=== PATIENT | female | born 1940 | race Caucasian/White ===

== ENCOUNTER → 2016-05-25 | Outpatient (CLI) | payer MEDICARE, BC ==
[~2016-05-25] MED LIST: LIDOCAINE 1% 30ml (STERI-PAK) ONE; LIDOCAINE 2%/EPI 1:100,000 20ml MDV ONE; NORMAL SALINE 250 ML IV ONE
== END ==
LOC: WC.BC 12:35
PROVIDERS: ATTEND Family Medicine
DX: N61.0 Mastitis without abscess (principal); N64.1 Fat necrosis of breast; R92.0 Mammographic microcalcification found on diagnostic imaging of breast; R92.1 Mammographic calcification found on diagnostic imaging of breast
CPT/HCPCS: 19081; A4648; G0206; J7050; 88305; 88342

== ENCOUNTER 2017-02-27 10:57 | Inpatient (IN) ==
[2017-02-27] MEDS ORDERED: SALINE FLUSH 10ml SYRINGE IVF PRN (11:16)
[2017-02-27] MEDS ORDERED: ALBUTEROL/IPRATROPIUM 2.5mg-0.5mg/3ml NEB AEROSOL ONE (11:16)
--- NOTE | 2017-02-27 11:17 | Emergency Department Report ---
General Adult HPI - General Chief complaint: Upper Respiratory Infection Stated complaint: cough, sob Time Seen by Provider: 02/27/17 11:09 Source: patient, EMS Mode of arrival: EMS Limitations: no limitations - History of Present Illness HPI narrative: 77-year-old female presents to the emergency department with a chief complaint of cough and shortness of breath. Patient has been experiencing her symptoms for the past 7 days. She has been on Keflex from her primary care physician. She states that she is not improving. She presented to the [facility] earlier today for further evaluation and treatment and was found to be hypoxic at 89% on room air and referred to the emergency department for further evaluation and treatment. She denies any pain or discomfort. Patient notes no other current complaints or associated symptoms. She states she did have a fever that has since resolved. She was at home when her symptoms began. Patient states that her symptoms began after being exposed to multiple ill contacts with similar symptoms in the [employer]. - Related Data Home Medications Medication Instructions Recorded Confirmed Acetaminophen [Acetaminophen Extra 500 mg PO Q4H PRN 02/27/17 02/27/17 Strength] Aspirin [Aspirin EC] 81 mg PO DAILY 02/27/17 02/27/17 Clopidogrel Bisulfate [Clopidogrel] 75 mg PO DAILY 02/27/17 02/27/17 LORazepam [Lorazepam] 1 mg PO BID 02/27/17 02/27/17 Lisinopril [Prinivil] 20 mg PO DAILY 02/27/17 02/27/17 Metoprolol Succinate 50 mg PO DAILY 02/27/17 02/27/17 Simvastatin [Simvastatin] 20 mg PO HS 02/27/17 02/27/17 cephALEXin [Cephalexin] 500 mg PO TID 02/27/17 02/27/17 dilTIAZem HCl [Cartia Xt] 240 mg PO PM 02/27/17 02/27/17 Allergies Allergy/AdvReac Type Severity Reaction Status Date / Time cephalexin Allergy Mild Nightmare Verified 02/27/17 11:15 Review of Systems Constitutional: Reports: fever (resolved. ). Denies: chills Eyes: Denies: eye pain, vision change ENT: Denies: ear pain, throat pain Cardiovascular: Denies: chest pain, palpitations Respiratory: Reports: cough, dyspnea, wheezes Gastrointestinal: Denies: abdominal pain, nausea, vomiting, diarrhea Genitourinary: Denies: urgency, dysuria Musculoskeletal: Denies: back pain, arthralgia Integumentary: Denies: erythema, rash Neurological: Denies: headache, numbness, paresthesias Psychiatric: Denies: anxiety, depression Endocrine: Denies: fatigue, heat or cold intolerance Hematological/Lymphatic: Denies: easy bleeding, easy bruising Allergic/Immunologic: Denies: facial swelling, urticaria PFSH Patient Stated Medical History Cataracts Yes Hypertension Yes Bronchitis Yes Gastroesophageal Reflux Yes Disease Anemia Yes Osteoarthritis Yes Clinic Medical History (Last Updated 02/27/17 @ 10:01 by TESS Flores) Arthritis (Chronic Medical) GERD (gastroesophageal reflux disease) (Chronic Medical) Pre-diabetes (Chronic Medical) Bronchitis (Resolved Medical) Hypercholesterolemia (Chronic Medical) Diverticulitis (Resolved Medical) Colon cancer (Resolved Medical) Hypertension (Chronic Medical) Surgical History: *Laparoscopic Abdominal Colon Resection due to cancer 2016. *Left Total Knee Replacement 10/2015. *Left Breast Biopsy (benign). * Cardiac Cathetarization x2 with Stent Placement once in the Coronary Artery. * Bilateral Cataract Removal. *[place] Teeth Extraction. *Colonoscopy Family History: Family History (Last Reviewed 02/27/17 @ 10:05 by TESS Flores) Mother Breast cancer Hypertension Dementia Father Hypertension Brother Hypertension Type 2 diabetes mellitus - Social History Smoking status: Former smoker Substance use type: does not use Alcohol intake frequency: does not drink Physical Exam - Limitations Limitations: no limitations - General General appearance: alert, in no apparent distress - Normal Exams: Head:: Normocephalic without trauma Eyes:: Pupils are PERRLA w/ EOMI, No scleral icterus, irritation, or foreign bodies noted ENMT:: No facial trauma, nasal exudates, pharyngeal erythema, or exudates are noted Dental: No fractured, loose, or missing teeth noted Neck:: Full range of motion, without adenopathy, JVD, bruits or thyromegaly Chest/Respirations:: with good airflow, and symmetry bilaterally (rhonchi bilaterally.) Cardiovascular:: Regular rate and rhythm, without murmur or gallop, Pulses 2+ all extremities, capillary refill, <2 seconds all extremities Abdomen:: Bowel sounds positive, soft, non-tender, non-distended, no hepatosplenomegaly, masses or bruits noted Lymphatic:: No lymphadenopathy, or lymphedema noted Musculoskeletal:: No tenderness, or deformity noted, good range of motion, all extremities Integumentary:: No rashes, hives, or bruising noted, hair and nails, without abnormality Neurological:: Patient is alert, and oriented, cranial nerves, motor/sensory/ cerebellar, exams w/o gross deficits, to observation Psychiatric:: Patient exhibits, appropriate attention, emotion and affect Course Vital Signs Temperature 97.8 F 02/27/17 10:58 Pulse Rate 48 L 02/27/17 10:58 Respiratory Rate 20 02/27/17 10:58 Blood Pressure 168/72 H 02/27/17 10:58 Temperature 96.3 F L 02/27/17 14:08 Pulse Rate 47 L 02/27/17 14:08 Respiratory Rate 18 02/27/17 14:08 Blood Pressure 150/68 H 02/27/17 14:00 Pulse Oximetry 94 02/27/17 14:08 Medical Decision Making - MDM Narrative Medical decision making narrative: Labs/imaging were discussed in detail with the patient and family and questions are answered. Patient is given DuoNeb treatments upon arrival to the emergency department. Patient is requiring supplemental oxygen to maintain her baseline oxygen saturation. Patient was given 3 trial weans in order to get off of the oxygen and was unsuccessful. She is requiring 2 L nasal cannula in order to maintain oxygen saturation greater than 90%. Patient does have a potential right lower lobe infiltrate noted on chest x-ray but this is most likely viral as the patient is influenza A positive. Patient is discussed with Dr. Gandhi who is in agreement with the current plan of management. Patient is admitted in observation status for influenza and hypoxia for further evaluation and treatment. No further orders from accepting physician who is in agreement with the current plan of management. Patient is admitted to the hospital in improved condition. No current indication for antibiotic therapy at this time as potential infiltrate is most likely viral with the patient being positive for influenza A. - Differential Diagnosis Viral syndrome, Pneumonia, URI, Influenza - Lab Data Result diagrams: 02/27/17 11:30 02/27/17 11:30 Lab Results 02/27/17 02/27/17 02/27/17 Range/Units 11:30 11:30 11:32 WBC 3.4 L (4.5-11.0) T/MM3 RBC 4.51 (4.00-5.20) M/MM3 Hgb 12.4 (12-16) GM/DL Hct 39.8 (36-46) % MCV 88.2 (80-100) UM3 MCH 27.5 (26-34) UUG MCHC 31.2 (31-37) GM/DL RDW Std Deviation 45.1 (36.9-50.2) FL Plt Count 151 (130-400) T/MM3 MPV 12.1 (9.4-12.4) UM3 Immature Gran % (Auto) 0.0 (0.0-0.5) % Neut % (Auto) 40.2 (33-66) % Lymph % (Auto) 43.8 (23-45) % Bradford % (Auto) 12.7 H (0-9.0) % Eos % (Auto) 1.2 (0-4) % Baso % (Auto) 2.1 H (0-2) % Neut # (Auto) 1.4 L (1.8-7.7) T/MM3 Lymph # (Auto) 1.5 (1-4.8) T/MM3 Bradford # (Auto) 0.4 (0-0.8) T/MM3 Eos # (Auto) 0.0 (0-0.5) T/MM3 Baso # (Auto) 0.1 (0-0.2) T/MM3 Abs Immat Gran (auto) 0.00 (0.00-0.03) T/MM3 Turbidity < 20 (0-20) Sodium 142 (134-144) MEQ/L Potassium 4.5 (3.6-5) MEQ/L Chloride 104 (98-107) MEQ/L Carbon Dioxide 26 (22-30) MEQ/L Anion Gap 12 (5-15) MEQ/L BUN 16.0 (7-17) MG/DL Creatinine 0.7 (0.7-1.2) MG/DL GFR Calculation 81 BUN/Creatinine Ratio 23 (6-26) RATIO Glucose 96 (65-110) MG/DL Calculated Osmolality 274 (261-280) MOSM/KG Calcium 10.0 (8.4-10.2) MG/DL Total Bilirubin 0.50 (0.20-1.30) MG/DL Icterus Index < 2 (0-7) AST 37 H (14-36) U/L ALT 46 (9-52) U/L Alkaline Phosphatase 100 (38-126) U/L Troponin I 0.039 (0-0.12) ng/ml Total Protein 7.8 (6.3-8.2) G/DL Albumin 4.5 (3.5-5.0) G/DL Globulin 3.3 (2.4-3.6) G/DL Albumin/Globulin Ratio 1.4 (1.1-2.2) RATIO Specimen Hemolysis 27 H (0-25) Influenza Type A (PCR) Positive A (Negative) Influenza Type B (PCR) Negative (Negative) - Radiology Data Chest x-ray: Potential right lower lobe infiltrate most likely viral. No other acute processes. - EKG Data EKG #1 EKG results narrative: Sinus bradycardia. 48 bpm. No STEMI. Disposition Clinical Impression: influenza, Hypoxia Disposition: 02 To [facility] [place] Acute Care Condition: Stable Time of Disposition: 13:15 (Admit. Dr. Gandhi. ) - Seen By: physician
[2017-02-27 14:30] VITALS: BMI 31.1
--- NOTE | 2017-02-27 15:08 | History & Physical Report ---
History of Present Illness Date: 02/27/17 Chief complaint: Dyspnea, Influenza, Hypoxia HPI: Aurelia is a pleasant 77-year-old female who has had upper respiratory congestion , cough and fever for over one week. She reports that earlier in the week 02/24 - 02/26 she had a fever was up to 103. She has had episodes at which she has felt short of breath. Did contact her primary care provider, Dr. Domitila Silva who started her on oral Keflex over the phone on 02/23. Today she presented to the emergency room for acute evaluation. She was found to be hypoxic with room air saturations of 88% and required 2 liters of oxygen by nasal cannula to maintain adequate saturations. Further laboratory studies were performed. CBC was found to be normal, chemistry panel normal. Patient was found to be positive for influenza A. She has been bradycardic 45-50 since arrival and does take a beta-deepali chronically. Given continued hypoxia, tachypnea, as well as findings of influenza A. The hospitalist services were contacted and accepted patient for inpatient admission for further evaluation and treatment. 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 *Left Total Knee Replacement 10/2015. *Left Breast Biopsy (benign). *Cardiac Cathetarization x2 with Stent Placement once in the Coronary Artery- 09/2016. * Bilateral Cataract Removal. *[place] Teeth Extraction. *Colonoscopy Family History Updates: Mother- Breast cancer,Hypertension,Dementia. Father- Hypertension. Brother-Hypertension,Type 2 diabetes mellitus - Social History Smoking status: Former smoker (quit in the ) Substance use type: does not use Housing: house Household members: other (Brother) Current residence: Apartment/Private Home Social history: Patient is independent resides at home and is the sole caregiver for her brother. PCP Dr Domitila Silva and Dr Feliz Ordoñez Medications Home Medications Medication Instructions Recorded Confirmed Type Acetaminophen [Acetaminophen Extra 500 mg PO Q4H PRN 02/27/17 02/27/17 History Strength] Aspirin [Aspirin EC] 81 mg PO DAILY 02/27/17 02/27/17 History Clopidogrel Bisulfate [Clopidogrel] 75 mg PO DAILY 02/27/17 02/27/17 History LORazepam [Lorazepam] 1 mg PO BID 02/27/17 02/27/17 History Lisinopril [Prinivil] 20 mg PO DAILY 02/27/17 02/27/17 History Metoprolol Succinate 50 mg PO DAILY 02/27/17 02/27/17 History Simvastatin [Simvastatin] 20 mg PO HS 02/27/17 02/27/17 History cephALEXin [Cephalexin] 500 mg PO TID 02/27/17 02/27/17 History dilTIAZem HCl [Cartia Xt] 240 mg PO PM 02/27/17 02/27/17 History Allergies Allergy/AdvReac Type Severity Reaction Status Date / Time cephalexin Allergy Mild Nightmare Verified 02/27/17 11:15 Exam Vital Signs: Temperature 96.3 F L 02/27/17 14:08 Pulse Rate 47 L 02/27/17 14:08 Respiratory Rate 18 02/27/17 14:08 Blood Pressure 150/68 H 02/27/17 14:00 Pulse Oximetry 94 02/27/17 14:08 Telemetry Rhythm: Sinus Bradycardia Height/Weight/BMI: Height 1.55 m Weight 74.8 kg Body Mass Index 31.1 - Constitutional Present: well nourished, well developed - Routine HEENT Exam Eye: Present: EOMI ENT: Present: mucous membranes moist, dentition normal - Routine Respiratory Exam Present: wheezes - Routine Cardiovascular Exam Present: RRR, S1, S2. Absent: murmur - Routine Abdominal Exam Present: soft, normoactive bowel sounds, non distended. Absent: tenderness - Routine Extremities Exam Present: pulses intact, normal capillary refill - Routine Skin Exam Present: intact, dry, warm - Routine Neurological Exam Present: alert, oriented X3, CN II-XII intact, moving all extremities - Routine Psychiatric Exam Present: normal affect, cooperative Results - Labs CBC & Chem 7: 02/27/17 11:30 02/27/17 11:30 Assessment and Plan (1) Influenza A Current visit: Yes Status: Acute (2) Hypoxia Current visit: Yes Status: Acute Assessment and Plan: Impression Influenza A- POA Hypoxia- RA sats 88% Bradycardia- 45-50 Coronary artery disease Hypertension Hypercholesterolemia. Hx adenocarcinoma Plan Admit patient inpatient status under the care of Dr Gandhi for Influenza A with hypoxia. Continue with oxygen therapy to keep saturations greater than 92%. Will order scheduled DuoNeb breathing treatments 4 times a day and as needed. Monitor cardiac telemetry, given bradycardia. Patient does take daily, Metoprolol ER 50mg daily and Cardizem. Will place both on hold. Continue with lisinopril, aspirin and Plavix. Ativan BID for chronic anxiety She may have regular diet NS at 100ml/hr for gentle hydration as she has had decreased oral intake for 12 week SCDs to bilateral lower extremity for DVT prophylaxis. He does wish to be a full code and this orders written. Discuss further orders and plan of care attending, Dr Gandhi At time of discharge medical care will return to primary care provider, Dr. Silva - Physician Narrative Narrative: S: Pt overall feels like she's doing okay, wants to go home. Denies any cp, sob , n/v/d, f/c currently. Denies any lightheadedness, dizziness. Denies any previous known hx of bradycardia. O: Cards: Bradycardia, no murmurs Lungs: CTAB, no wheezes A/P: Pt is recovering from flu well. Will provide supportive therapy. Pt also has asymptomatic bradycardia, unclear if early sinus disease or from meds. Holding metoprolol/cardizem. Pt has had cath just 6 months ago by . EKG shows sinus rob without any blocks. Possibly from hypoxia from acute illness. Will monitor on tele. Date: 02/27/17 Time: 1900 Hospital Course Summary Disclaimer: The visit summary below is not to be considered part of the above Progress Note. Hospital Course: 02/27/17 Impression Influenza A- POA Hypoxia- RA sats 88% Bradycardia- 45-50 Coronary artery disease Hypertension Hypercholesterolemia. Hx adenocarcinoma Plan Admit patient inpatient status under the care of Dr Gandhi for Influenza A with hypoxia. Continue with oxygen therapy to keep saturations greater than 92%. Will order scheduled DuoNeb breathing treatments 4 times a day and as needed. Monitor cardiac telemetry, given bradycardia. Patient does take daily, Metoprolol ER 50mg daily and Cardizem. Will place both on hold. Continue with lisinopril, aspirin and Plavix. Ativan BID for chronic anxiety She may have regular diet NS at 100ml/hr for gentle hydration as she has had decreased oral intake for 12 week SCDs to bilateral lower extremity for DVT prophylaxis. He does wish to be a full code and this orders written. Discuss further orders and plan of care attending, Dr Gandhi At time of discharge medical care will return to primary care provider, Dr. Silva
[2017-02-27] MEDS ORDERED: ONDANSETRON 4 MG/2 ML INJECTION IVP PRN (15:20)
[2017-02-27] MEDS ORDERED: ACETAMINOPHEN 500 MG TABLET PO PRN (15:23)
[2017-02-27] MEDS ORDERED: ALBUTEROL 2.5mg/3ml (0.083%) NEB AEROSOL PRN (15:26)
[2017-02-27] MEDS: NS 1,000 ML IV SCH (15:28)
[2017-02-27] MEDS: ACETAMINOPHEN 500 MG TABLET PO SCH ×2 (15:38→21:34)
[2017-02-27] MEDS: ALBUTEROL/IPRATROPIUM 2.5mg-0.5mg/3ml NEB AEROSOL SCH ×2 (15:56→19:45)
[2017-02-27] MEDS ORDERED: ATROPINE 0.4 MG/ML INJECTION IVP PRN (19:14)
[2017-02-27] MEDS ORDERED: SIMVASTATIN 20 MG TABLET PO SCH (21:00)
[2017-02-27] MEDS: LORazepam 1 MG TABLET PO SCH (21:34)
[2017-02-28] MEDS: ACETAMINOPHEN 500 MG TABLET PO SCH ×4 (00:23→11:43)
[2017-02-28] MEDS: NS 1,000 ML IV SCH ×2 (01:02→11:44)
[2017-02-28 07:49] VITALS: TEMP 97.2
[2017-02-28 08:20] VITALS: BP 168/80
[2017-02-28] MEDS: ALBUTEROL/IPRATROPIUM 2.5mg-0.5mg/3ml NEB AEROSOL SCH ×2 (08:30→12:15)
--- NOTE | 2017-02-28 08:57 | XRay Report ---
Indication: Productive Cough, congestion and shortness of air for one to two weeks PROCEDURE: XR chest 1V: Encounter: Initial Comparison: None FINDINGS: The lungs are clear. There is no abnormal airspace opacity, pleural effusion or pneumothorax identified. The heart size is at the upper limits of normal to minimally enlarged. The pulmonary vasculature and mediastinum are within normal limits. No significant skeletal abnormality is seen. IMPRESSION: No acute cardiopulmonary abnormality. .
[2017-02-28] MEDS ORDERED: LISINOPRIL 20 MG TABLET PO SCH (09:00)
[2017-02-28] MEDS ORDERED: ASPIRIN *EC* 81 MG TABLET PO SCH (09:00)
[2017-02-28] MEDS ORDERED: CLOPIDOGREL 75 MG TABLET PO SCH (09:00)
[2017-02-28 09:01] VITALS: PULSE 70
[2017-02-28] MEDS: LORazepam 1 MG TABLET PO SCH (09:28)
[2017-02-28 12:26] VITALS: RESP 20; O2SAT 95
--- NOTE | 2017-02-28 15:46 | Discharge Summary ---
Discharge Information Date of admission: 02/27/17 13:54 Anticipated date of discharge: 02/28/17 Attending Physician: Carlos Gandhi MD Primary care physician: Tommy Ordoñez MD Consults: None - Discharge Diagnosis (1) Influenza A Status: Acute (2) Hypoxia Status: Acute Influenza A- POA Hypoxia- RA sats 88% Bradycardia- 45-50 A-fibulation- New onset Coronary artery disease Hypertension Hypercholesterolemia. Hx adenocarcinoma - Procedures Procedures: None - Laboratory Labs: 02/28/17 04:36 02/28/17 04:36 - Microbiology None - Radiology Radiology: Chest xray- no acute cardiopulmonary abnormalities. - Pathology None History of Present Illness HPI: Aurelia is a pleasant 77-year-old female who has had upper respiratory congestion , cough and fever for over one week. She reports that earlier in the week 02/24 - 02/26 she had a fever was up to 103. She has had episodes at which she has felt short of breath. Did contact her primary care provider, Dr. Domitila Bryant who started her on oral Keflex over the phone on 02/23. Today she presented to the emergency room for acute evaluation. She was found to be hypoxic with room air saturations of 88% and required 2 liters of oxygen by nasal cannula to maintain adequate saturations. Further laboratory studies were performed. CBC was found to be normal, chemistry panel normal. Patient was found to be positive for influenza A. She has been bradycardic 45-50 since arrival and does take a beta-deepali chronically. Given continued hypoxia, tachypnea, as well as findings of influenza A. The hospitalist services were contacted and accepted patient for inpatient admission for further evaluation and treatment. Objective Vital signs: Temperature 97.2 F 02/28/17 07:00 Pulse Rate 70 02/28/17 08:45 Respiratory Rate 20 02/28/17 12:15 Blood Pressure 168/80 H 02/28/17 08:20 Pulse Oximetry 95 02/28/17 12:15 Height/Weight/BMI: Height 1.55 m Weight 75.8 kg Body Mass Index 31.1 - Constitutional Present: no acute distress, well nourished, well developed - Routine HEENT Exam Eye: Present: EOMI ENT: Present: mucous membranes moist, dentition normal - Routine Respiratory Exam Present: CTA bilaterally. Absent: wheezes - Routine Cardiovascular Exam Present: RRR, S1, S2. Absent: murmur - Routine Abdominal Exam Present: soft, normoactive bowel sounds, non distended. Absent: tenderness - Routine Extremities Exam Present: full ROM, normal capillary refill - Routine Back/Spine/Pelvis Exam Back/Spine: Present: full ROM - Routine Skin Exam Present: intact, dry, warm - Routine Neurological Exam Present: alert, oriented X3, CN II-XII intact - Routine Lymphatic Exam Lymphatic: Absent: adenopathy - Routine Psychiatric Exam Present: normal affect, cooperative Hospital Course This is a general summary of the patient's hospital course. For more details refer to the complete medical record. Hospital course: 02/27/17 - Impression Influenza A- POA Hypoxia- RA sats 88% Bradycardia- 45-50 Coronary artery disease Hypertension Hypercholesterolemia. Hx adenocarcinoma Plan Admit patient inpatient status under the care of Dr Gandhi for Influenza A with hypoxia. Continue with oxygen therapy to keep saturations greater than 92%. Will order scheduled DuoNeb breathing treatments 4 times a day and as needed. Monitor cardiac telemetry, given bradycardia. Patient does take daily, Metoprolol ER 50mg daily and Cardizem. Will place both on hold. Continue with lisinopril, aspirin and Plavix. Ativan BID for chronic anxiety She may have regular diet NS at 100ml/hr for gentle hydration as she has had decreased oral intake for 12 week SCDs to bilateral lower extremity for DVT prophylaxis. He does wish to be a full code and this orders written. Discuss further orders and plan of care attending, Dr Gandhi At time of discharge medical care will return to primary care provider, Dr. Bryant 02/28/17- Discharge Aurelia is seen and examined on day of discharge. Her breathing has continued to improve and she has not required any further oxygen supplementation. She does continue to have a mild cough, however denies feeling short of breath. Bradycardia has improved and EKG was repeated today that does revel atrial fibrillation , which is a new onset for patient. We did speak with patient's cardiology, Dr. Brooklyn Valladares . He recommends starting on eloquence 5 milligrams daily for anticoagulation. We will also continue on Plavix, however, will stop aspirin. Patient is also to stop Cardizem, Metoprolol and continue only on Lisinopril. Patient and daughter are instructed to call Dr. Valladares's office on Friday 03/02 to set up follow-up appointment in the next 1 week. We discussed in great detail regarding monitoring for evidence of bleeding. Patient and daughter verbalize understanding of instructions. She is discharged in stable condition. Time spent with patient: discharge greater than 30 minutes Discharge Plan - Discharge Disposition Discharge Date: 02/28/17 Disposition: 01 Discharged Home, Self-Care *Condition: Stable Reason For Visit (Visit label in EMR): influenza, hypoxia - Discharge Medications *Discharge Medications: New Apixaban [Eliquis] 5 mg PO BID #30 tab Acetaminophen [Tylenol] 500 mg PO Q4H tab Continue Simvastatin 20 mg PO HS LORazepam [Lorazepam] 1 mg PO BID Acetaminophen [Acetaminophen Extra Strength] 500 mg PO Q4H PRN PRN Reason: Pain Lisinopril [Prinivil] 20 mg PO DAILY Clopidogrel Bisulfate [Clopidogrel] 75 mg PO DAILY Discontinued dilTIAZem HCl [Cartia Xt] 240 mg PO PM cephALEXin [Cephalexin] 500 mg PO TID Aspirin [Aspirin EC] 81 mg PO DAILY Metoprolol Succinate 50 mg PO DAILY - Discharge Packet/Instructions *Diet: Regular diet *Activity: Activity as tolerated *Pain Management/Treatment: Tylenol as needed for pain *Wound Care: None Additional Instructions: Stop taking- Keflex, ASA, Cartia, Metoprolol. Start taking Eliquid 5 mg twice a day. Montior for evidence of bleeding, blood in her stools or black stools. Call Dr Valladares on Friday 03/02 to schedule follow-up appointment as soon as available. Report to his office for any sustained heart rate greater than 120. Use good handwashing and use mask when around others. Rest and stay well hydrated. You can use cough drops for coughing and OTC Mucinex as needed. Follow up with Dr Bryant in 1 week for re-check *Expected Signs/Symptoms: Continued improvement in congestion, cough and shortness of breath *Notify Physician if: Fever, chills, shortness of breath, chest pain or other concerning symptoms *During Business Hours Contact: Contact primary care provider. Dr. Bryant or Dr. Valladares *After Business Hours Contact: Page configuration manager physician or present to the emergency room *Pending Lab/Results: No Pending Lab - Referrals/Follow Up *Referrals/Follow Up: Brooklyn Valladares MD [Physician] - (Follow up in 1 week) DOMITILA BRYANT [Physician Nonstaff] - (follow up in 1 week ) - Patient Handouts Patient Handouts: Influenza (DC), Hypoxia (GEN) Physician Narrative - Narrative Attestation Narrative: S: Pt reports she is doing well and would like to go home. Denies any dizziness , palpitations, cp, sob, or n/v/d. O: Cards: Darnell, irregularly irregular Lungs: CTAB without wheezes A/P: Pt will be discharged today. Pt recovering well from flu, O2 sats doing well and pt passed exercise oximetry. Bradycardia was initially sinus but then transitioned into afib with slow ventricular response. Pt is possible showing signs of sinus mark disease/sick sinus. Pt has CHADVASC of 4. Discussed with pt risks/benefits of anti-coagulation and pt agreed to go on it. Started Eliquis , stopped ASA, continued plavix. Also stopped metoprolol and cardizem. Plan was discussed with pt's vegetable worker and he agreed. Pt will follow up with him this week. Date: 02/28/17 Time: 1730
== END 2017-02-28 14:10 | disposition home or self-care (01) | DRG 195 ==
LOC: ED 10:57 → MED 13:54
PROVIDERS: ADMIT Internal Medicine; ATTEND Internal Medicine